=== PATIENT | female | born 1960 | race American Indian/Alaskan Native ===

== ENCOUNTER 2019-03-05 12:35 | Emergency (ER) | payer MEDICARE ==
[2019-03-05 12:42] VITALS: O2SAT 100
[2019-03-05] MEDS ORDERED: Oxycodone/Acetaminophen 5/325 mg Tab PO STA (13:09)
[2019-03-05] MEDS ORDERED: Oxycodone/Acetaminophen 5/325 mg Tab ONE (13:11)
[2019-03-05] MEDS ORDERED: Epinephrine /Lidocaine HCL 1:100,000/2% 30 ml INJ STA (13:19)
[2019-03-05] MEDS ORDERED: Bacitracin 500 Units/gm Oint Foilpak UD TOP STA (13:19)
[2019-03-05] MEDS ORDERED: Tdap Vaccine 0.5 ml Vial (10-64 yrs) IM ONE ×2 (13:19→13:31)
[2019-03-05] MEDS ORDERED: Bacitracin 500 Units/gm Oint Foilpak UD ONE (13:40)
[2019-03-05 15:02] VITALS: BP 158/84; PULSE 64; RESP 18; TEMP 98.6
--- NOTE | 2019-03-05 15:02 | C.PDOC ---
History Of Present Illness 58 year old female presents to ED s/p fall and hit her left elbow. Patient has a laceration to her left elbow. Patient actively bleeding. Patient is not up to date with her tetanus vaccine. Patient denies head trauma, headache, loss of consciousness, weakness, numbness, abdominal pain, and chest pain. Time Seen by Provider: 03/05/19 12:54 Chief Complaint (Nursing): Upper Extremity Problem/Injury History Per: Patient History/Exam Limitations: no limitations Onset/Duration Of Symptoms: Hrs Current Symptoms Are (Timing): Still Present Quality: "Pain" Past Medical History Reviewed: Historical Data, Nursing Documentation, Vital Signs Vital Signs: Last Vital Signs Temp 98.5 F 03/05/19 12:40 Pulse 69 03/05/19 12:40 Resp 17 03/05/19 12:40 BP 172/93 H 03/05/19 12:40 Pulse Ox 100 03/05/19 12:40 Primary Care Provider: Non [facility] Provider, - Medical History PMH: HTN, Hyperlipidemia Surgical History: No Surg Hx Family History: States: Unknown Family Hx - Social History Hx Alcohol Use: No Hx Substance Use: No - Immunization History Hx Tetanus Toxoid Vaccination: No Hx Influenza Vaccination: No Hx Pneumococcal Vaccination: No Review Of Systems Constitutional: Negative for: Fever, Chills, Weakness Cardiovascular: Negative for: Chest Pain Gastrointestinal: Negative for: Abdominal Pain Musculoskeletal: Positive for: Arm Pain (left elbow pain, actively bleeding laceration) Neurological: Negative for: Weakness, Numbness, Headache, Other (syncope) Physical Exam - Physical Exam Appears: Well, Non-toxic, No Acute Distress Skin: Normal Color, Warm, Dry Head: Atraumatic, Normacephalic Eye(s): bilateral: Normal Inspection, PERRL, EOMI Neck: Normal ROM, Supple Chest: Symmetrical, No Deformity, No Tenderness Cardiovascular: Rhythm Regular, No Murmur Respiratory: No Accessory Muscle Use, No Rales, No Rhonchi, No Wheezing Gastrointestinal/Abdominal: Soft, No Tenderness Extremity: Normal ROM, No Tenderness, Capillary Refill (<2 seconds), No Swelling, Other (4 cm laceration to the left elbow, irregularly contused with jagged borders; actively bleeding) Pulses: Left Radial: Normal, Right Radial: Normal Neurological/Psych: Oriented x3, Normal Speech, Normal Cognition, Normal Motor, Normal Sensation ED Course And Treatment O2 Sat by Pulse Oximetry: 100 (in RA) Pulse Ox Interpretation: Normal - Other Rad Elbow Xray X-Ray: Viewed By Me, Read By Radiologist Interpretation: Accession No. : [id number]. Patient Name / ID : MARGRET STEWART / [id number]. Exam Date : 03/05/2019 13:26:45 ( Approved ). Study Comment : Sex / Age : F / [id number]. Creator : Vladislav Mckeon. Dictator : Subhash Scott MD. Manager : Multiple Knife Edge Trimmer Operator : Subhash Scott MD. Approver2 : Report Date : 03/05/2019 13:40:44. My Comment : . Date of service: 03/05/2019. PROCEDURE: Radiographs of the left elbow. HISTORY: fall. COMPARISON: No prior. TECHNIQUE: 3 views obtained. FINDINGS: BONES: Normal. No fracture. JOINTS: Normal. No osteoarthritis. SOFT TISSUES: Normal. JOINT EFFUSION: None. OTHER FINDINGS: None. IMPRESSION: No evidence of acute fracture or dislocation. Progress Note: Left Elbow X-ray ordered for patient. Patient given percocet PO, tetanus vaccine, bacitracin, epinephrine/lidocaine hydro, and keflex PO. Laceration repair performed. Pressure dressing applied to laceration. Patient tolerated well. Laceration - Laceration Repair Left Elbow Wound Length (In cm): 4 Description Of Wound: Irregular, Contused Tissue Wound Cleansed With: Sterile Saline Anesthesia: Lidocaine 1%, With Epi Wound Examination: Irrigated With Saline (1.5 L saline), No FB With Wound Exploration Wound Closure: Suture (9) Suture Technique And Material Used: Interrupted, Prolene (3:0) Wound Complexity: Complex Disposition - Disposition Disposition: HOME/ ROUTINE Disposition Time: 14:59 Condition: IMPROVED Additional Instructions: Follow up with your PMD within 1-2b days. Return to ED immediately if feel worse. Wound check suggested in 2 days by your PMD or ED. Suture removal in 14 days. 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 (Roseann Mane) - Scribe Statement The provider has reviewed the documentation as recorded by the Scribe (Roseann Mane) All medical record entries made by the Scribe were at my direction and personally dictated by me. I have reviewed the chart and agree that the record accurately reflects my personal performance of the history, physical exam, medical decision making, and the department course for this patient. I have also personally directed, reviewed, and agree with the discharge instructions and disposition.
--- NOTE | 2019-03-05 15:33 | RAD ---
Date of service: 03/05/2019 PROCEDURE: Radiographs of the left elbow. HISTORY: fall COMPARISON: No prior. TECHNIQUE: 3 views obtained. FINDINGS: BONES: Normal. No fracture. JOINTS: Normal. No osteoarthritis. SOFT TISSUES: Normal. JOINT EFFUSION: None. OTHER FINDINGS: None IMPRESSION: No evidence of acute fracture or dislocation.
== END 2019-03-05 15:11 | disposition home or self-care (01) ==
LOC: C.ER 12:35
DX: S51.012A Laceration without foreign body of left elbow, initial encounter (principal); S50.02XA Contusion of left elbow, initial encounter; W18.30XA Fall on same level, unspecified, initial encounter